=== PATIENT | female | born 1995 | race African-American/Black ===

== ENCOUNTER 2024-08-04 14:56 | Emergency (ER) | payer OTHER, SELFPAY ==
--- NOTE | ~2024-08-04 | XR_ITS ---
EXAM: XR hand RT min 3V DATE: 08/04/2024 15:32 HISTORY: TRAUMA . COMPARISON: None available. FINDINGS: Normal mineralization. No fracture or dislocation. No lytic or blastic lesion. Joint space s are maintained. No erosion or periosteal change. Soft tissues within normal limits. IMPRESSION: No acute osseous finding in the right hand. Reviewed, dictated and finalized at location K.
[2024-08-04 15:00] VITALS: BP 123/80; PULSE 97; RESP 18; TEMP 36.4; O2SAT 99
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
[2024-08-04] MEDS: TETANUS,DIPHTHERIA,AC PERTUSSIS ADULT (0.5 ML) BOOSTRIX IM (15:41)
--- OUTSIDE RECORDS SUMMARY | 2024-08-04 15:46 | XMS_ITS | Clinical Summary ---
Author Organization [facility] Address [address] [place] [address] Phone Care Team Providers Care Press Writer Name Role Phone [facility], External Provider Primary Care Provider U navailable Allergies No known active allergies Medications No known medications Encounters Date Type Department Care Team Description 07/19/2024 7:50 AM SENIOR SUSTAINABILITY ADVISOR - 07/19/2024 8:28 AM [facility] Emergency [facility] Emergency Department [address] [place] [id number] Desirae Mukherjee MD Discharge Disposition: Left without being seen 07/19/2024 Travel from Last 3 Months Social History Tobacco Use Types Packs/Day Years Used Date Smoking Tobacco: Never Tobacco Cessation:Counseling Given: Not Answered Feeling Safe Answer Date Recorded Are you in a relationship wi th someone who hurts you emotionally and/or physically? No 07/19/2024 Comments No Sex and Gender Information Value Date Recorded Sex Assigned at Not on file Legal Sex Female 12:03 PM CDT Gender Identity Not on file Sexual Orientation Not on file Last Filed Vital Signs Vital Sign Reading Time Taken Comments Blood Pressure 136/66 07/19/2024 7:31 AM SENIOR SUSTAINABILITY ADVISOR Pulse 72 07/19/2024 7:31 AM SENIOR SUSTAINABILITY ADVISOR Temperature 36.8 C (98.2 F) 07/19/2024 7:31 AM SENIOR SUSTAINABILITY ADVISOR Respiratory Rate 16 07/19/2024 7:31 AM SENIOR SUSTAINABILITY ADVISOR Oxygen Saturation 98% 07/19/2024 7:31 AM SENIOR SUSTAINABILITY ADVISOR Inhaled Oxygen Concentration - - Weight 117.9 kg (260 lb) 07/19/2024 3:57 AM SENIOR SUSTAINABILITY ADVISOR Height 160 cm (5' 3 ) 07/19/2024 3:57 AM SENIOR SUSTAINABILITY ADVISOR Body Mass Index 46.06 07/19/2024 3:57 AM SENIOR SUSTAINABILITY ADVISOR Plan of Treatment Health Maintenance Due Date Last Done Comments HEPATITIS B VACCINES (1 of 3 - 19+ 3-dose series) 2013 Preventative Visit-Managed Medicaid 2013 INFLUENZA VACCINE (#1) 2023 COVID-19 Vaccine (3 - 2023-2 5 season) 2024 12/17/2020, 10/20/2020 CERVICAL CANCER SCREENING 2024 DTAP/TDAP/TD VACCINES (2 - T d or Tdap) 04/12/2027 04/12/2017 HPV VACCINES Aged Out No longer eligi ble based on patient's age to complete this topic Care Teams Press Writer Relationship Specialty Start Date End Date [facility], External Provider [address] [place] [address] PCP - General 06/03/19
--- OUTSIDE RECORDS SUMMARY | 2024-08-04 15:46 | XMS_ITS | Continuity of Care Document ---
Author Organization [facility] Address [address] [place] [address] Phone Care Team Providers Care Vice President Of Academic Affairs Name Role Phone Connie Palacios Unavailable Unavailable Kevin RN, Yamilet Unavailable Unavailable Allergies, Adverse Reactions, Alerts Substance Reaction Status Criticality No Known allergies Procedures Procedure Date Comprehensve oral evaluation Dental bitewings two films Dental panoramic film Dental prophylaxis adult Topical Flouride Varnish PERIODIC COMPREHENSIVE PREVENTIVE MED RE E/M; ESTABLISHED PATIENT; 05-07 OFFICE CONSULT, 15 MIN, 3 KE Y COMPS: PROB FOCUS HX; PROB FOCUS EXAM; STRWD Advance Directives Directive Yes / No Effective Date File Name No Information Encounters Encounter Description Practice Location Reason(s) For Visit Diagnoses Date Provider Providers Copied on Encounter [facility], [address], [place], [place], [id number] , tel: [phone] [facility] No Information 0 Ezekiel Rosales. [address], [place], [place], [id number], . tel:[phone] Consulting Provider: Yamilet Brown, [address], [place], [address]. [phone] [facility], [address], [place], [place], [id number] , tel: [phone] [facility] [place] Dental examination 3 Alex Brannon. [address], [place], [place], [address]. [phone] PERIODIC COMPREHENSIVE PREVENTIVE MED REE/M; ESTABLISHED PATIENT; 05-07 Doug alberto, [address], [place], [place], [address] , tel: [phone] [facility] Routine infant or child health check [phone]. [address], [place], [place], [id number], . tel:[phone] Doug alberto, [address], [place], [place], [address] , tel: [phone] Historic Immunization Location No Information 9 No Information OFFICE CONSULT, 15 MIN, 3 GIORDANO COMPS: PROB FOCUS HX; PROB FOCUS EXAM; STRTFWD Doug alberto, [address], [place], [place], [address] , tel: [phone] [facility] ECONOMIC PROBLEM 6 No Information Family History Family Member Type Diagnosis Age At Onset No Information Immunizations Vaccine Date Status Comments TETANUS & DIPHTHERIA TOXOIDS ADSORBED 7 YR + IM administered Source: New Immuniza tion Record VARICELLA VIRUS VACCINE, VILMA E, FOR SUBCUTANEOUS USE administered Source: New Immuniz ation Record HEPATITUS B 5 CC AGE 0-18 administered So urce: New Immunization Record IPV AGES 0-20 administered Source: New Im munization Record DTP-AC administered Source: New Imm unization Record Payers Payer name Insurance type Covered green party ID Authoriza tion(s) No Information Social History Type Description Quantity Date Captured Comments Sex Female Smoking Status No Information Chief Complaint And Reason For Visit No Information Reason For Referral Reason For Referral No Information History Of Present Illness Encounter Date Complaint History Of Prese nt Illness No Information Functional Status Date Functional Assessmen t No Information Instructions Date Instruction Additional Infor mation No Information Assessments Type Assessment Date No Information Patient Care Teams Name Effective Dates (start - stop) Status Members No Information
--- OUTSIDE RECORDS SUMMARY | 2024-08-04 15:46 | XMS_ITS | Referral Summary ---
Author Organization [facility] Address [address] [place] [address] Care Team Providers Care Web Mobile Designer Name Role Phone Nahum Simmons NP Primary Care Provider [phone] Allergies No known active allergies Medications ibuprofen (ADVIL,MOTRIN) 600 mg tablet Take 1 tablet (600 mg total) by mouth every 6 (six) hours as needed for pain 20 tablet 03/19/2022 Active acetaminophen (TYLENOL) 325 mg tablet Take 2 tablets (650 mg total) by mouth every 6 (six) hours as needed for pain 30 tablet 03/19/2022 Active Active Problems No known active problems Social History Tobacco Use Types Packs/Day Years Used Date Smoking Tobacco: Never Smokeless Tobacco: Never Tobacco Cessation:Counseling Given: Yes Personal Safety Answer Date Recorded Getting School Help Needed Not on file 05/30 Comments No Sex and Gender Information Value Date Recorded Sex Assigned at Not on file Legal Sex Female 10:58 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 Gender Identity Not on file Sexual Orientation Not on file Last Filed Vital Signs Vital Sign Reading Time Taken Comments Blood Pressure 155/98 03/19/2022 3:22 AM CDT Pulse 94 03/19/2022 3:22 AM CDT Temperature 37.1 C (98.8 F) 03/18/2022 9:15 PM CDT Respiratory Rate 18 03/19/2022 3:22 AM CDT Oxygen Saturation 99% 03/19/2022 3:22 AM CDT Inhaled Oxygen Concentration - - Weight 108.9 kg (240 lb) 03/18/2022 9:15 PM CDT Height 162.6 cm (5' 4 ) 03/18/2022 9:15 PM CDT Body Mass Index 41.2 03/18/2022 9:15 PM CDT Plan of Treatment Not on file Insurance Care Teams Web Mobile Designer Relationship Specialty Start Date End Date Nahum Simmons NP [address] [place] [id number] PCP - General Pediatrics 01/15/20
--- OUTSIDE RECORDS SUMMARY | 2024-08-04 15:46 | XMS_ITS | Clinical Summary ---
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 Gender Identity Not on file Sexual Orientation Not on file Obstetrics History Last Filed Vital Signs Vital Sign Reading [...] 03/18/2022 9:15 PM CDT Plan of Treatment Health Maintenance Due Date Last Done Comments Cervical Cancer Screening 1994 Depression Screening 1994 Hepatitis C Screening 1994 Varicella Vaccines (1 of 2 - 13+ 2-dose series) 2007 Regular Well Visit/Exam 18-64 2012 Covid-19 Vaccine (3 - 2023-2 5 season) 2024 12/17/2020, 10/20/2020 Influenza Vaccine (#1) 2024 7, 02/21/2012 DTaP/Tdap/Td Vaccine (4 - Td or Tdap) 04/11/2027 04/11/2017, 08/11/2010, 02/18/2000 Hepatitis B Screening Completed 02/18/2000 HPV Vaccines Aged Out No longer eligi ble based on patient's age to complete this topic Pneumococcal vaccine <65 Aged Out No longer eligible based on patient's age to complete this topic Insurance Care Teams Timber Sizer Operator Relationship Specialty Start Date End Date Nahum Simmons NP [address] [place], [place] [id number] PCP - General Pediatrics 01/15/20
== END 2024-08-04 16:11 | disposition home or self-care (01) ==
LOC: ANHED 15:44
PROVIDERS: Emergency Provider Emergency Medicine
DX: S60.221A Contusion of right hand, initial encounter (principal); Y04.2XXA Assault by strike against or bumped into by another person, initial encounter; Z23 Encounter for immunization
CPT/HCPCS: 73130; 90471; 90715; 99283